=== PATIENT | male | born 1975 | race Caucasian/White ===

== ENCOUNTER 2016-08-01 16:11 | Emergency (ER) | payer BC ==
[~2016-08-01] VITALS: Ht 172.7 cm; Wt 113.4 kg
--- NOTE | ~2016-08-01 | EKG ---
[address] [address] ELECTROCARDIOGRAM REPORT Name: OSCAR APPIAH [facility]Brit[facility] [id number] Admission: 08/01/16 Attend Phys: Discharge: Date of : 71 Report #: [id number] THIS REPORT FOR: //name// [facility] ED Test Date: 2016-08-01 Test Time: 17:18:19 Pat Name: OSCAR APPIAH Department: Room: Gender: M Java Developer: Lashae : 1975 Requested By: Shani Patterson Order Number: [id number] MD: Measurements Intervals [employer] Rate: 91 P: 45 MI: 140 QRS: 51 QRSD: 133 T: 3 QT: 365 QTc: 450 Interpretive Statements Sinus rhythm Right bundle branch block No previous ECG available for comparison [email or web address] By: 17 17 Charles Soto MD /EPI
[2016-08-01] MEDS ORDERED: LEXAPRO20 MG PO (17:15)
[2016-08-01] MEDS ORDERED: XANAX1 MG PO (17:15)
[2016-08-01] MEDS ORDERED: NIASPAN ER 101000 M1 PO (17:16)
[2016-08-01] MEDS ORDERED: HYDROCHLOROTHIA25 M2 PO (17:16)
[2016-08-01] MEDS ORDERED: PRINIVIL5 MG PO (17:17)
[2016-08-01 17:18] LABS: ABSOLUTE NEUTROPHILS 4.6 thou/uL (1.4-8.2); BASOPHILS 1.1 % (0.0-2.0); EOSINOPHILS 0.9 % (0.0-3.0); HEMOGLOBIN 14.7 gm/dL (14.0-18.0); LYMPHOCYTES 28.1 % (24.0-44.0); MCH 29.8 pg (26.0-34.0); MCHC 35.1 g/dL (28.0-37.0); PLATELET COUNT 262 thou/uL (150-400); POLYS 62.9 % (36.0-66.0); RBC 4.95 mil/uL (4.50-6.00); RDW 13.4 % (10.5-14.5); WBC 7.3 thou/uL (4.0-11.0)
[2016-08-01 17:25] LABS: MANUAL DIFF NO
[2016-08-01 17:30] LABS: CALCIUM 9.1 mg/dL (8.5-10.1); CREATININE 0.8 mg/dL (0.6-1.3); POTASSIUM 3.1 mmol/L (3.5-5.1)
[2016-08-01 18:53] VITALS: BP 124/81
== END 2016-08-01 18:53 | disposition home or self-care (01) ==
LOC: ER 16:11
PROVIDERS: Emergency Medicine
DX: R51 Headache (principal); E87.6 Hypokalemia; I10 Essential (primary) hypertension; Z88.5 Allergy status to narcotic agent; Z88.8 Allergy status to other drugs, medicaments and biological substances; F10.99 Alcohol use, unspecified with unspecified alcohol-induced disorder